=== PATIENT | female | born 1995 | race Hispanic/Latino ===

== ENCOUNTER 2018-03-04 22:16 | Inpatient (IN) | payer BC ==
[2018-03-04 22:42] VITALS: O2SAT 98
--- NOTE | 2018-03-04 22:43 | C.PDOC ---
History Of Present Illness 23 year old female with PMHx of depression presents via ambulance for depression and suicide attempt today. Patient reports taking Venlafaxine for her depression, and is complaint with medication. States she felt very depressed today and tried to hang herself with scarf, but was unsuccessful. She denies any neck pain. Patient reports she did not choke. She then told her friends, who made her come in. Otherwise patient denies any homicidal ideation, auditory/visual hallucinations, recent alcohol/drug use, or ingestion of pills. Recent stressors include new job and recent move to [place] from [place]. No other chronic illnesses or surgical history. Time Seen by Provider: 03/04/18 22:23 Chief Complaint (Nursing): Psychiatric Evaluation History Per: Patient History/Exam Limitations: no limitations Onset/Duration Of Symptoms: Hrs Current Symptoms Are (Timing): Still Present Suicide/Self Injury Attempted (Context): Other (Hung self with scarf) Modifying Factor(s): None Associated Symptoms: Depression, Suicidal Thoughts Additional History Per: EMS Past Medical History Reviewed: Historical Data, Nursing Documentation, Vital Signs Vital Signs: Last Vital Signs Temp 97.5 F L 03/05/18 06:07 Pulse 69 03/05/18 06:07 Resp 19 03/05/18 06:07 BP 137/97 H 03/05/18 06:07 Pulse Ox 98 03/05/18 01:39 - Medical History PMH: Depression Surgical History: No Surg Hx Family History: States: Diabetes, Other Other Family History: Depression - Social History Hx Tobacco Use: No Hx Alcohol Use: Yes (social) Hx Substance Use: Yes (occasional marijuana use) Review Of Systems Except As Marked, All Systems Reviewed And Found Negative. Musculoskeletal: Negative for: Neck Pain Psych: Positive for: Depression, Suicidal ideation (and hanging attempt). Negative for: Other (homicidal ideation, hallucinations, or intoxication) Physical Exam - Physical Exam Appears: In Acute Distress (in acute psychiatric distress), Other (tearful on exam) Skin: Warm, Dry Head: Atraumatic, Normacephalic Eye(s): bilateral: PERRL, EOMI, Other (Conjunctival injection bilaterally) Nose: No Flaring Lips: Normal Appearing Neck: Normal ROM, Trachea Midline Lymphatic: No Adenopathy Chest: Symmetrical Cardiovascular: Rhythm Regular, No Murmur Respiratory: Normal Breath Sounds, No Accessory Muscle Use Gastrointestinal/Abdominal: Soft, No Distention Back: Normal Inspection, No Decreased ROM Extremity: Normal ROM, No Deformity Neurological/Psych: Oriented x3, Other (depressed mood and affect) ED Course And Treatment - Laboratory Results Result Diagrams: 03/04/18 23:11 03/04/18 23:11 Urine POC: Negative O2 Sat by Pulse Oximetry: 98 (RA) Pulse Ox Interpretation: Normal Medical Decision Making Medical Decision Making: Initial Impression: Depression, Suicide attempt Plan: --CMP --Alcohol serum --UDS --CBC --Urinalysis --Urine preg --Placed on 1:1 observation as per suicide precaution --Pending crisis evaluation Case discussed with animal husbandry worker, as per Dr. Teague patient will require admission. On initial discussion, patient is not willing to sign in for admission and may require [facility] [place] [place] screening. Labs reviewed. Patient is medically stable for psychiatric admission. 1:00am Case discussed with animal husbandry worker. Patient agrees to sign in for admission here. Patient accepted for admission to Dr. Teague's service for major depressive disorder and borderline personality disorder. Disposition Discussed With : Donaldo Teague Doctor Will See Patient In The: Hospital Counseled Patient/Family Regarding: Studies Performed - Disposition Disposition: HOSPITALIZED Disposition Time: 01:00 Condition: STABLE - Clinical Impression Clinical Impression: Major depression, Suicide attempt - Scribe Statement The provider has reviewed the documentation as recorded by the Carina De Oliveira Provider Attestation: All medical record entries made by the Randibmirza were at my direction and personally dictated by me. I have reviewed the chart and agree that the record accurately reflects my personal performance of the history, physical exam, medical decision making, and the department course for this patient. I have also personally directed, reviewed, and agree with the discharge instructions and disposition.
[2018-03-04 23:15] LABS: BASO % 0.5 % (0.0-2.0); EOS # 0.1 K/uL (0.0-0.7); EOS % 1.2 % (0.0-4.0); HEMOGLOBIN 14.1 g/dL (11.0-16.0); LYMPH # 2.9 K/uL (1.0-4.3); LYMPH % 36.5 % (20.0-40.0); MEAN CELL VOLUME 89.2 fL (81.0-99.0); MEAN CORPUSCULAR HEMOGLOBIN 30.7 pg (27.0-31.0); MEAN CORPUSCULAR HGB CONC 34.4 g/dL (33.0-37.0); MONO # 0.6 K/uL (0.0-0.8); MONO % 7.9 % (0.0-10.0); NEUT # 4.2 K/uL (1.8-7.0); NEUT % 53.9 % (50.0-75.0); NRBC % 0.1 % (0.0-2.0); RBC 4.61 Mil/uL (3.80-5.20); RED CELL DISTRIBUTION WIDTH 13.6 % (11.5-14.5); WHITE BLOOD COUNT 7.9 K/uL (4.8-10.8)
[2018-03-04 23:27] LABS: ALB/GLOB RATIO 1.3 (1.0-2.1); ALBUMIN 4.4 g/dL (3.5-5.0); ALT/SGPT 33 U/L (9-52); AST/SGOT 23 U/L (14-36); BLOOD UREA NITROGEN 11 mg/dL (7-17); CALCIUM 9.5 mg/dl (8.6-10.4); GFR NON-AFRICAN AMERICAN > 60
[2018-03-05 00:32] LABS: SQUAMOUS EPITHIAL 2 /hpf (0-5); URINE BACTERIA RARE (<OCC); URINE BILIRUBIN NEGATIVE (NEGATIVE); URINE BLOOD 1+ (NEGATIVE); URINE CLARITY Clear (Clear); URINE COLOR Yellow (YELLOW); URINE GLUCOSE (UA) NORMAL (Normal); URINE LEUKOCYTE ESTERASE 2+ Leu/uL (Negative); URINE PROTEIN NEGATIVE (NEGATIVE); URINE UROBILINOGEN NORMAL mg/dL (0.2-1.0)
[2018-03-05 00:55] LABS: BARBITURATES, UR NEGATIVE (NEGATIVE); BENZODIAZEPINES, UR NEGATIVE (NEGATIVE); OPIATES, UR NEGATIVE (NEGATIVE); PHENCYCLIDINE, UR NEGATIVE (NEGATIVE)
--- NOTE | 2018-03-05 02:40 | PCM.BM ---
<Radha Patel - Last Filed: 03/05/18 02:38> Treatment Plan Problems - Problems identified on initial assessmt Depression Date Initiated: 03/05/18 Time Initiated: 02:39 Assessment reference: NA Status: Active Suicide Ideation Date Initiated: 03/05/18 Time Initiated: 02:39 Assessment reference: NA Status: Active Treatment assets and liabiliti Patient Assests: cooperative, educated, insightful, resourceful, physically healthy, good support system, financial stabiity (worked) - Milieu Protocol Maintain good personal hygiene: daily Encourage regular showers, daily Remind patient to perform daily oral care, daily Assist patient to perform ADL's Maintain personal safety: every shift Educate patient to report safety concerns to staff, every shift Monitor environment for contraband/sharps Medication safety: Monitor for expected outcome, potential side effects: every shift, Assess barriers to learning: every shift, Assess readiness for medication education: every shift <Zoila Pope - Last Filed: 03/05/18 15:15> Family Contact Family involvement: Family/SO is involved Family contact: Family has been contacted by patient - Goals for Treatment Patient goals for treatment: "I want to be referred to an outpatient program." Discharge/Continuing Care - Education Needs Education Needs: Patient Medication, Patient Diagnosis/Disease Process, Patient Coping Skills, Patient Placement options, Patient Community resources - Discharge Discharge Criteria: Free of Suicidal thoughts, Normal sleep pattern, Ability to care for self, Reduction of target symptoms Discharge to:: Home - Treatment Team Participation Discussed with Family/SO: No Was Patient/Family/SO present at Treatment Team Meeting: Yes
[2018-03-05 06:08] VITALS: TEMP 97.5
--- NOTE | 2018-03-05 10:25 | PCM.PSYCH ---
Initial Psychiatric Evaluation - Initial Psychiatric Evaluation Type of Admission: Voluntary Legal Status: Capacity Chief Complaint (in patient's own words): "Hang myself with scarf yesterday" History of Present Illness and Precipitating Events: Pt is 23 year old female who's single, has no kids, and lives in an apartment alone. She graduated from college and is currently working as an help desk assistant at [employer]. Pt presenting with suicidal ideation. Pt states that she was having suicidal thoughts "forever, even as a kid." Pt attempted suicide last night by hanging her scarf onto a pipe in the ceiling. Per the pt, "I left one foot off to see if it could reach the floor. It didn't. I then stepped back and went to bed." and she stopped attempting suicide afterward. Pt said that she did not intend to kill herself. "I just wanted to try and see if I could do it." Pt contacted her friends from [place] shortly thereafter, and her friends pressured her to come to the hospital via ambulance after they called the police. Pt confirms depression. Pt confirms feelings of guilt, and decreased appetite. Pt denies anhedonia, sleep pattern changes (she is usually able to fall asleep within 35-45 min), fatigue, concentration problems, and psychomotor problems. Pt confirms racing thoughts "random ideas pop up. Different things. Thoughts about not like myself, suicidal thoughts, not getting recognition in life because of my employment. Not being able to show people I'm worthwhile." Pt feels agitated, but denies the urge to "punch a wall, but instead pull everything inward." Pt denies manic symptoms, distractibility, irritability, grandiosity, and pressured speech. Pt denies auditory, visual, or tactile hallucinations. Pt feels anxious, and her last panic attack was when she was in high school. During this panic attack, she confirmed having palpitations, chest pain, and SOB. Pt denies ever having paranoia. Pt occasionally drinks EtOH. Her last drink was 1 week ago, half a beer. In college, she drank occasionally during the weekends. Pt denies smoking cigarettes. She occasionally smokes marijuana, last time used on Saturday, but is unsure of the amount. Max amount was 1 g. She denies cocaine, heroin, or any other drug usage. Social Hx: Pt does not find her job stressful. 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 Outside of her job, various activities help her relax: meditation, walking, reading, writing, and listening to music recreationally. After her parents divorce, pt remains attached to them and has continued maintaining constant communication with both of her parents. Psych Hx: Pt was hospitalized in September 2014 at [facility] for depression. Pt is currently on venlafaxine and states that it is helping her. In the past, she was on Wellbutrin, Abilify, and fluoxetine. Per the pt, Wellbutrn was making her feel more agitated, anxious, and irritable. Pt has been seeing a psychiatrist in the past, but in 2015, pt stopped seeing her because the psychiatrist left the practice without warning. When asked for prior suicide attempts in the past, she confirms during her second year of college, when she "took a bunch of pills, but it just made me fall asleep." She does not remember what pills they were. When asked for the reasoning, pt states that she was overwhelmed with many stressors: transition to college from high school, away from home, new environment, parents "going through a nasty divorce " in [id number]. Traumatic Hx: Pt was bullied when she was younger in school Family Psych Hx: Pt's mother, father, and maternal grandmother were all diagnosed with MDD. Medical Hx: Unremarkable Legal Hx: Unremarkable Current Medications: Active Medications Generic Name Dose Route Start Last Admin Trade Name Freq PRN Reason Stop Dose Admin Aripiprazole 5 mg 03/05/18 22:00 Abilify PO HS SHARYN Hydroxyzine HCl 25 mg 03/05/18 10:23 Atarax PO Q6 PRN Anxiety Pneumococcal Polyvalent Vaccine 0.5 ml 03/07/18 02:37 Pneumovax 23 Vaccine IM 03/07/18 02:38 .ONCE ONE Trazodone HCl 25 mg 03/05/18 22:00 Desyrel PO HS SHARYN Venlafaxine HCl 150 mg 03/05/18 10:30 Effexor Xr PO DAILY SHARYN Past Psychiatric History - Past Psychiatric History Previous Treatment History: Inpatient Pertinent Medical Hx (Current Medical&Sleep Prob, Allergies): Allergies Allergy/AdvReac Type Severity Reaction Status Date / Time No Known Allergies Allergy Unverified 03/04/18 22:27 Ergocalciferol (Vitamin D2) [Vitamin D2] 2,000 unit PO DAILY 03/04/18 Venlafaxine 250 mg PO DAILY 03/04/18 Review of Systems - Review of Systems All systems: reviewed and no additional remarkable complaints except - Psychiatric Psychiatric: As Per HPI, Abnormal Sleep Pattern (2 hours/day), Anxiety, Change in Appetite (decrease), Depression, Difficulty Concentrating, Hopelessness, Irritability, Suicidal Ideation, Other (guilt, racing thoughts, agitation). absent: Anhedonia, Auditory Hallucinations, Hallucinations, Homicidal Ideation, Panic Attacks, Paranoia, Visual Hallucinations, Tactile Hallucinations Mental Status Examination - Personal Presentation Personal Presentation: Looks stated age - Affect Affect: Constricted, Depressed - Motor Activity Motor Activity: Calm - Reliability in Providing Information Reliability in Providing Information: Fair - Speech Speech: Organized - Mood Mood: Depressed, Anxious - Formal Thought Process Formal Thought Process: Flight of ideas - Obsessions/Compulsions Obsessions: No Compulsions: No - Cognitive Functions Orientation: Person, Place, Situation, Time Sensorium: Alert Attention/Concentration: Attentive Abstract Thinking: [place] Estimate of Intelligence: Below average Judgement: Imparied, as evidence by: Poor judgement, Imparied, as evidence by: Lack of insight into illness - Risk Risk: Suicidal, Diminished functioning - Limitations Limitations: Living alone DSM 5 DX - DSM 5 DSM 5 Diagnosis: Bipolar depressed severe, without psychotic features Cannabis use disorder moderate - Recommended/Plan of Treatment Treatment Recommendations and Plan of Treatment: Bipolar depressed severe, without psychotic features Cannabis use disorder moderate Start 150 mg Effexor Abilify 5 mg Neurontin 100 mg TID Give anxiety medications PRN (Atarax) As need medications All risks, benefits and alternatives of the meds discussed, and the pt agreed and understood. Attend groups and activities Individual therapy daily Psychoeducation and support daily Encourage compliance with meds and after care Refer to outpatient program Teach healthy lifestyle methods, i.e. diet, exercise, meditation Smoking cessation and patch if needed - Smoking Cessation Smoking Cessation Initiated: No
[2018-03-05] MEDS: Venlafaxine 150 mg ER Cap PO SCH (10:49)
[2018-03-05] MEDS ORDERED: traZODone 25 mg Tab PO SCH (22:00)
[2018-03-06 06:27] VITALS: BP 117/79; PULSE 90; RESP 20
[2018-03-06] MEDS: Venlafaxine 150 mg ER Cap PO SCH (09:56)
--- NOTE | 2018-03-06 11:04 | PCM.PYCHDC ---
Mental Status Examination - Mental Status Examination Orientation: Person, Place, Situation, Time Memory: Intact Mood: Neutral Affect: Constricted Speech: Soft Attention: WNL Concentration: WNL Association: WNL Fund of Knowledge: WNL Formal Thought Process: No Impairment Description of patient's judgement and insight: good, fair Psychotic Thoughts and Behaviors: denies any AVH Suicidal Ideation: No Current Homicidal Ideation?: No Discharge Summary - Discharge Note Reason for Hospitalization: Pt is 23 year old female who's single, has no kids, and lives in an apartment alone. 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 Pt presenting with suicidal ideation. Pt states that she was having suicidal thoughts "forever, even as a kid." Pt attempted suicide last night by hanging her scarf onto a pipe in the ceiling. Per the pt, "I left one foot off to see if it could reach the floor. It didn't. I then stepped back and went to bed." and she stopped attempting suicide afterward. Pt said that she did not intend to kill herself. "I just wanted to try and see if I could do it." Pt contacted her friends from [place] shortly thereafter, and her friends pressured her to come to the hospital via ambulance after they called the police. Pt confirms depression. Pt confirms feelings of guilt, and decreased appetite. Pt denies anhedonia, sleep pattern changes (she is usually able to fall asleep within 35-45 min), fatigue, concentration problems, and psychomotor problems. Pt confirms racing thoughts "random ideas pop up. Different things. Thoughts about not like myself, suicidal thoughts, not getting recognition in life because of my employment. Not being able to show people I'm worthwhile." Pt feels agitated, but denies the urge to "punch a wall, but instead pull everything inward." Pt denies manic symptoms, distractibility, irritability, grandiosity, and pressured speech. Pt denies auditory, visual, or tactile hallucinations. Pt feels anxious, and her last panic attack was when she was in high school. During this panic attack, she confirmed having palpitations, chest pain, and SOB. Pt denies ever having paranoia. Pt occasionally drinks EtOH. Her last drink was 1 week ago, half a beer. In college, she drank occasionally during the weekends. Pt denies smoking cigarettes. She occasionally smokes marijuana, last time used on Saturday, but is unsure of the amount. Max amount was 1 g. She denies cocaine, heroin, or any other drug usage. Social Hx: Pt does not find her job stressful. 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 Outside of her job, various activities help her relax: meditation, walking, reading, writing, and listening to music recreationally. After her parents divorce, pt remains attached to them and has continued maintaining constant communication with both of her parents. Psych Hx: Pt was hospitalized in September 2014 at [facility] for depression. Pt is currently on venlafaxine and states that it is helping her. In the past, she was on Wellbutrin, Abilify, and fluoxetine. Per the pt, Wellbutrn was making her feel more agitated, anxious, and irritable. Pt has been seeing a psychiatrist in the past, but in 2015, pt stopped seeing her because the psychiatrist left the practice without warning. When asked for prior suicide attempts in the past, she confirms during her second year of college, when she "took a bunch of pills, but it just made me fall asleep." She does not remember what pills they were. When asked for the reasoning, pt states that she was overwhelmed with many stressors: transition to college from high school, away from home, new environment, parents "going through a nasty divorce " in [id number]. Traumatic Hx: Pt was bullied when she was younger in school Family Psych Hx: Pt's mother, father, and maternal grandmother were all diagnosed with MDD. Medical Hx: Unremarkable Legal Hx: Unremarkable Consultations:: List each consultation separately and include: 1. Reason for request. 2. Findings. 3. Follow-up Summary of Hospital Course include:: 1. Description of specific treatment plan utilized for patients during their course of treatmen. 2. Summarize the time- course for resolution of acute symptoms and/or regressed behaviors. 3. Describe issues identified and worked on during hospitalization. 4. Describe medication utilized. 5. Describe medical problems identified and treated. 6. Reassessment of suicide risk Summary of Hospital Course: Pt is 23 year old female who's single, has no kids, and lives in an apartment alone. 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 Pt presenting with suicidal ideation. Pt states that she was having suicidal thoughts "forever, even as a kid." Pt attempted suicide last night by hanging her scarf onto a pipe in the ceiling. Per the pt, "I left one foot off to see if it could reach the floor. It didn't. I then stepped back and went to bed." and she stopped attempting suicide afterward. Pt said that she did not intend to kill herself. "I just wanted to try and see if I could do it." Pt contacted her friends from [place] shortly thereafter, and her friends pressured her to come to the hospital via ambulance after they called the police. Pt confirms depression. Pt confirms feelings of guilt, and decreased appetite. Pt denies anhedonia, sleep pattern changes (she is usually able to fall asleep within 35-45 min), fatigue, concentration problems, and psychomotor problems. Pt confirms racing thoughts "random ideas pop up. Different things. Thoughts about not like myself, suicidal thoughts, not getting recognition in life because of my employment. Not being able to show people I'm worthwhile." Pt feels agitated, but denies the urge to "punch a wall, but instead pull everything inward." Pt denies manic symptoms, distractibility, irritability, grandiosity, and pressured speech. Pt denies auditory, visual, or tactile hallucinations. Pt feels anxious, and her last panic attack was when she was in high school. During this panic attack, she confirmed having palpitations, chest pain, and SOB. Pt denies ever having paranoia. Pt occasionally drinks EtOH. Her last drink was 1 week ago, half a beer. In college, she drank occasionally during the weekends. Pt denies smoking cigarettes. She occasionally smokes marijuana, last time used on Saturday, but is unsure of the amount. Max amount was 1 g. She denies cocaine, heroin, or any other drug usage. Social Hx: Pt does not find her job stressful. 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 Outside of her job, various activities help her relax: meditation, walking, reading, writing, and listening to music recreationally. After her parents divorce, pt remains attached to them and has continued maintaining constant communication with both of her parents. Psych Hx: Pt was hospitalized in September 2014 at [facility] for depression. Pt is currently on venlafaxine and states that it is helping her. In the past, she was on Wellbutrin, Abilify, and fluoxetine. Per the pt, Wellbutrn was making her feel more agitated, anxious, and irritable. Pt has been seeing a psychiatrist in the past, but in 2015, pt stopped seeing her because the psychiatrist left the practice without warning. When asked for prior suicide attempts in the past, she confirms during her second year of college, when she "took a bunch of pills, but it just made me fall asleep." She does not remember what pills they were. When asked for the reasoning, pt states that she was overwhelmed with many stressors: transition to college from high school, away from home, new environment, parents "going through a nasty divorce " in [id number]. Traumatic Hx: Pt was bullied when she was younger in school Family Psych Hx: Pt's mother, father, and maternal grandmother were all diagnosed with MDD. Medical Hx: Unremarkable Legal Hx: Unremarkable - Final Diagnosis (DSM 5) Condition upon Discharge: STABLE DSM 5: Bipolar depressed severe, without psychotic features Cannabis use disorder moderate Disposition: HOME/ ROUTINE Follow-up Treatment Plan: Bipolar depressed severe, without psychotic features Cannabis use disorder moderate Start 150 mg Effexor Abilify 5 mg Neurontin 100 mg TID Give anxiety medications PRN (Atarax) As need medications All risks, benefits and alternatives of the meds discussed, and the pt agreed and understood. Attend groups and activities Individual therapy daily Psychoeducation and support daily Encourage compliance with meds and after care Refer to outpatient program Teach healthy lifestyle methods, i.e. diet, exercise, meditation Smoking cessation and patch if needed Prescriptions/Medication Reconciliation: ARIPiprazole [Abilify] 5 mg PO HS #30 tab Gabapentin [Neurontin] 100 mg PO BID #60 cap Venlafaxine [Effexor XR] 150 mg PO DAILY #30 cer - Smoking Cessation Smoking Cessation Medication prescribed: No - Antipsychotic Medications Pt discharged on 2 or more routine antipsychotic medications: No
[2018-03-07] MEDS ORDERED: Pneumococcal 23-Valent Vaccine IM ONE (02:37)
== END 2018-03-06 13:57 | disposition home or self-care (01) | DRG 885 ==
LOC: C.ER 22:16 → C.5E 03-05 01:01
PROVIDERS: ADMIT Psychiatry & Neurology Psychiatry; ATTEND Psychiatry & Neurology Psychiatry
PROC: GZ3ZZZZ Medication Management (ICD-10-PCS; principal; 2018-03-05)
PROC: GZHZZZZ Group Psychotherapy (ICD-10-PCS; 2018-03-05)
PROC: GZ56ZZZ Individual Psychotherapy, Supportive (ICD-10-PCS; 2018-03-05)
DX: F31.4 Bipolar disorder, current episode depressed, severe, without psychotic features (principal); R45.851 Suicidal ideations; F12.10 Cannabis abuse, uncomplicated; F41.0 Panic disorder [episodic paroxysmal anxiety]; Z81.8 Family history of other mental and behavioral disorders; Z91.5 Personal history of self-harm